=== PATIENT | female | born 1940 | race Caucasian/White ===

== ENCOUNTER 2019-07-29 00:26 | Inpatient (IN) | payer OTHER, BC ==
[~2019-07-29] VITALS: Ht 152.4 cm; Wt 68.5 kg
[2019-07-29 00:28] VITALS: BP 110/52
[2019-07-29] MEDS ORDERED: ZOFRAN4 MG PO (00:35)
[2019-07-29] MEDS ORDERED: PROTONIX40 M2 PO (00:36)
[2019-07-29] MEDS ORDERED: LEVO-T100 MCG PO (00:36)
[2019-07-29 01:53] LABS: ABSOLUTE NEUTROPHILS 5.3 thou/uL (1.4-8.2); BASOPHILS 0.6 % (0.0-2.0); EOSINOPHILS 1.6 % (0.0-3.0); HEMATOCRIT 29.1 % (37.0-47.0); HEMOGLOBIN 9.5 gm/dL (12.0-15.0); MCH 28.5 pg (26.0-34.0); MCHC 32.5 g/dL (28.0-37.0); MCV 87.5 fL (80.0-100.0); MONOCYTES 9.2 % (1.0-8.0); PLATELET COUNT 303 thou/uL (150-400); POLYS 59.6 % (36.0-66.0); RBC 3.33 mil/uL (4.20-5.00); RDW 13.8 % (10.5-14.5); WBC 8.9 thou/uL (4.0-11.0)
[2019-07-29 02:12] LABS: ALBUMIN 3.2 g/dL (3.4-5.0); ANION GAP 9 mmol/L (7-16); BUN 16 mg/dL (7-18); CALCIUM 8.5 mg/dL (8.5-10.1); CHLORIDE 109 mmol/L (98-107); CO2 27 mmol/L (21-32); CREATININE 0.9 mg/dL (0.6-1.0); GLUCOSE 119 mg/dL (74-106); MAGNESIUM 1.8 mg/dL (1.8-2.4); SGOT 18 U/L (15-37); SGPT 17 U/L (30-65); SODIUM 145 mmol/L (136-145); TOTAL BILIRUBIN 0.4 mg/dL (<0.1-1.0); TOTAL PROTEIN 6.8 g/dL (6.4-8.2); TROPONIN-I <0.06 ng/mL (<0.06)
[2019-07-29 02:23] LABS: POTASSIUM 2.6 mmol/L (3.5-5.1)
[2019-07-29 03:17] LABS: URINE BILIRUBIN NEGATIVE (Negative); URINE BLOOD NEGATIVE (Negative); URINE CLARITY CLEAR; URINE COLOR YELLOW; URINE GLUCOSE-RANDOM* NEGATIVE (Negative); URINE KETONES NEGATIVE (Negative); URINE LEUKOCYTES-REFLEX NEGATIVE (Negative); URINE NITRITE-REFLEX NEGATIVE (Negative); URINE PROTEIN (DIPSTICK) TRACE (Negative); URINE UROBILINOGEN 0.2 E.U./dl (0.2-1.0)
[2019-07-29 03:37] LABS: AMP/METHAMP Negative (Negative); BARBITURATES Negative (Negative); BENZODIAZEPINES Negative (Negative); COCAINE Negative (Negative); METHADONE Negative (Negative); OPIATES Negative (Negative); PCP Negative (Negative)
--- NOTE | 2019-07-29 08:41 | EKG ---
[address] [address] ELECTROCARDIOGRAM REPORT Name: JONO HUMMEL Room #: 170-10 ADM IN M.R.#: [id number] Admission: 07/29/19 Attend Phys: Rashawn Saini MD Discharge: Date of : 36 Report #: [id number] THIS REPORT FOR: //name// [facility] ED Test Date: 2019-07-29 Test Time: 00:32:46 Pat Name: JONO HUMMEL Department: Room: 170 Gender: F Collections Director: JIMENA : 1940 Requested By: [place] Head Order Number: [id number] MD: Emiliano Porras Measurements Intervals [place] Rate: 76 P: 7 MN: 169 QRS: -1 QRSD: 93 T: 66 QT: 409 QTc: 460 Interpretive Statements Sinus rhythm 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
[2019-07-29 10:07] VITALS: BP 152/66
--- NOTE | 2019-07-29 12:36 | NUR ---
REPORT GIVEN TO BISI NEWBERRY.
[2019-07-29 15:33] LABS: CREATININE 0.7 mg/dL (0.6-1.0); POTASSIUM 3.2 mmol/L (3.5-5.1)
[2019-07-29 15:43] VITALS: BP 156/76
[2019-07-29 16:49] VITALS: BP 156/76
--- NOTE | 2019-07-29 19:39 | NUR ---
PATIENT ADMIT TO UNIT FROM ER [facility] 1400. A/0 X2. MAX ASSISTED WHEN UP. GENERLIZED WEAKNEESS. WILL KEEP MONITOR.
[2019-07-29 21:02] VITALS: BP 154/68
[2019-07-30 00:11] VITALS: BP 154/70
--- NOTE | 2019-07-30 00:47 | NUR ---
PT HAS BEEN OUT OF BED MANY TIMES TONIGHT, UP TO THE BSC. SHE WANTS TO BE AWAKE AND SITTING IN THE RECLINER. SHE CONTINUES TO DRINK HER DIET COKE A TTHE BEDSIDE TONIGHT. ENCOURAGED HER TO DRINK WATERM BUT SHE REFUSES.
--- NOTE | 2019-07-30 03:32 | NUR ---
FREQUENTLY UP TO THE BSC. CONTINUES ON IV FLUIDS. DENIES PAIN. SHE IS VERY AWAKE AT NIGHT AND INSISTS ON DRINKING DIET COKE ALL NIGHT WHILE WATCHING TV. DENIES PAIN. WANTING TO GO HOME. SHE WAS VERY UPSET AT BEGINNING OF THE SHIFT AND THREATENED TO CALL A CAB
[2019-07-30 03:58] VITALS: BP 156/72
[2019-07-30 06:15] LABS: CALCIUM 9.1 mg/dL (8.5-10.1); CREATININE 0.7 mg/dL (0.6-1.0)
[2019-07-30 06:19] LABS: POTASSIUM 2.7 mmol/L (3.5-5.1)
[2019-07-30 07:35] VITALS: BP 140/77
[2019-07-30] MEDS ORDERED: K-DUR 20 MEQ T20 MEQ PO (12:10)
[2019-07-30 13:09] VITALS: BP 140/77
--- NOTE | 2019-07-30 14:08 | NUR ---
assessment: CM REVIEWED CHART. PT HAS ORDERS TO DISCHARGE HOME WITH HH. CM WENT TO MEET WITH PATIENT BUT PT HAD ALREADY BEEN DISCHARGED. CM REACHED OUT TO PATIENTS DAUGHTER CLAUDIA WHOM PATIENT LIVES WITH. SHE REPORTS PT HAS NO STEPS TO ENTER THE HOME. SHE REPORTS PATIENT WAS AMBULATING INDEPENDENTLY PRIOR TO ADMISSION BUT STATES SHE DOES HAVE A CANE AND WALKER AT HOME. DAUGHTER REPORTS THEY DO NOT FEEL PT NEEDS HH AND PT DOES NOT WANT IT AT THIS TIME. PT DECLINING HOME HEALTH. CASE CLOSED.
--- NOTE | 2019-07-30 16:19 | NUR ---
PATIENT DISCHARGED HOME TODAY WITH DAUGHTER AND SON. SHE HAS INSISTED ALL MORNING SHE WANTED TO GO HOME AND THERAPY CLEARED HERE. SHE IS ALERT ORIENTED TO SELF. DOES NOT SEEM TO BE IN PAIN OR DISTRESS AT TIIME OF DISCHARGE.
== END 2019-07-30 14:11 | disposition home or self-care (01) | DRG 641 ==
LOC: ER 00:26 → 3W 02:51 → EROBS 02:51 → 3W 12:47
PROVIDERS: Emergency Medicine; ADMIT Family Medicine
DX: E87.6 Hypokalemia (principal); E03.9 Hypothyroidism, unspecified; D64.9 Anemia, unspecified; Z90.49 Acquired absence of other specified parts of digestive tract; Z79.899 Other long term (current) drug therapy; Z85.3 Personal history of malignant neoplasm of breast; Z90.13 Acquired absence of bilateral breasts and nipples
CPT/HCPCS: 10879

== ENCOUNTER → 2019-08-03 | Outpatient (CLI) | payer OTHER, BC ==
[~2019-08-03] MED LIST: K-DUR 20 MEQ T20 MEQ PO; LEVO-T100 MCG PO; PROTONIX40 M2 PO; ZOFRAN4 MG PO
[2019-08-03 12:37] LABS: CREATININE 0.7 mg/dL (0.6-1.0)
== END ==
LOC: MRI 11:23
PROVIDERS: Family Medicine
DX: R42 Dizziness and giddiness (principal); R29.6 Repeated falls